=== PATIENT | female | born 1970 | race Caucasian/White ===

== ENCOUNTER 2017-01-16 07:08 | Emergency (ER) | payer OTHER ==
[~2017-01-16] VITALS: Ht 165.1 cm; Wt 63.0 kg
[2017-01-16 07:08] VITALS: BP_SYST 120
--- NOTE | 2017-01-16 07:08 | NUR ---
Pt placed in ER bed 06, report given to BRY Aelx.
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
--- NOTE | 2017-01-16 07:35 | NUR ---
at the bedside evaluating Pt. Currently awaiting new orders.
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
[2017-01-16] MEDS ORDERED: ONDANSETRON 4 MG ODT TAB PO ONE (08:00)
[2017-01-16] MEDS ORDERED: IBUPROFEN 400 MG TABLET PO ONE (08:00)
--- NOTE | 2017-01-16 08:10 | NUR ---
Pt ambulated to radiology, gait steady.
--- NOTE | 2017-01-16 08:48 | NUR ---
Pt returned from radiology
--- NOTE | 2017-01-16 08:50 | NUR ---
Pain medication was given, no noted adverse reaction, will continue to monitor.
[2017-01-16 09:07] VITALS: BP_SYST 118
--- NOTE | 2017-01-16 09:07 | NUR ---
Patient given written and verbal discharge instructions and verbalizes understanding. ER MD discussed with patient the results and treatment provided. Patient in stable condition. ID arm band removed. Rx of tramadol, soma, and naproxen given. Patient educated on pain management and to follow up with PMD. Pain Scale 4. Dr Degroot is aware, pain medication was given here and prescription for home, pt states will take at home. Opportunity for questions provided and answered.
== END 2017-01-16 09:07 | disposition home or self-care (01) ==
LOC: SED 07:08
DX: S16.1XXA Strain of muscle, fascia and tendon at neck level, initial encounter (principal); S29.012A Strain of muscle and tendon of back wall of thorax, initial encounter; V89.2XXA Person injured in unspecified motor-vehicle accident, traffic, initial encounter; Y93.89 Activity, other specified; Y92.89 Other specified places as the place of occurrence of the external cause; Y99.8 Other external cause status
CPT/HCPCS: 72040; 72072; 81025; 99284; Q0162